=== PATIENT | female | born 1980 | race African-American/Black ===

== ENCOUNTER 2024-02-05 13:34 | Emergency (ER) | payer BC ==
[~2024-02-05] VITALS: Ht 177.8 cm; Wt 91.0 kg
[2024-02-05 13:40] VITALS: O2SAT 100
[2024-02-05] MEDS ORDERED: DICYCLOMINE 10 MG/5 ML ORAL SYR PO STA (14:32)
[2024-02-05] MEDS: ONDANSETRON HCL 4MG/2ML INJ IV STA (14:45)
[2024-02-05] MEDS: MAGNESIUM/ALUMINUM HYDROXIDE/SIMETHICONE 30ML UDC PO STA (14:46)
[2024-02-05] MEDS: KETOROLAC 30MG/ML VIAL IV STA (14:46)
[2024-02-05 14:54] LABS: BASOPHILS % 0.4 % (0.0-2.0); EOSINOPHILS % 0.3 % (0.0-5.0); HEMATOCRIT. 35.8 % (36.0-48.0); LYMPHOCYTES % 8.9 % (20.0-50.0); MEAN CORPUSCULAR HEMOGLOBIN 28.6 pg (28.0-32.0); MEAN CORPUSCULAR HGB CONC 33.5 g/dL (31.0-37.0); MEAN CORPUSCULAR VOLUME 85.3 fL (81.0-99.0); MEAN PLATELET VOLUME 6.9 fl (7.4-10.4); MONOCYTES % 3.6 % (2.0-8.0); NEUTROPHILS % 86.8 % (40.0-76.0); PLATELET 325 x1000/uL (130-400); RED CELL DISTRIBUTION WIDTH 14.6 % (11.6-14.6); WHITE BLOOD COUNT 8.7 x1000/uL (4.5-11.0)
[2024-02-05 14:59] LABS: CHLORIDE 106 mEq/L (98-107); POTASSIUM 3.9 mEq/L (3.5-5.1); SODIUM 138 mEq/L (136-145)
[2024-02-05 15:00] LABS: CALCIUM 9.3 mg/dL (8.7-10.4); CARBON DIOXIDE 25 mEq/L (21-32)
[2024-02-05 15:05] LABS: GLUCOSE 96 mg/dL (70-105); UREA NITROGEN BLOOD 11 mg/dL (9-23)
[2024-02-05 15:05] LABS: CLARITY URINE CLOUDY (CLEAR); COLOR URINE DARK YELLOW (YELLOW); GLUCOSE URINE NEGATIVE (NEGATIVE); KETONES URINE 1+ (NEGATIVE); LEUKOCYTE ESTERASE URINE NEGATIVE (NEGATIVE); NITRITE URINE NEGATIVE (NEGATIVE); OCCULT BLOOD URINE 1+ (NEGATIVE); PROTEIN URINE TRACE (NEGATIVE); SPECIFIC GRAVITY URINE 1.022 (1.005-1.030); UROBILINOGEN URINE 0.2 E.U./dL (0.2-1.0)
[2024-02-05 15:07] LABS: ALANINE AMINOTRANSFERASE 21 IU/L (10-49); ALBUMIN 4.9 g/dL (3.2-4.8); ASPARTATE AMINOTRANSFERASE 28 IU/L (<34); BILIRUBIN DIRECT < 0.1 mg/dL (<=3.0); BILIRUBIN TOTAL 0.4 mg/dL (0.1-1.0); HCG SCREEN NEGATIVE; PROTEIN TOTAL 7.7 g/dL (6.0-8.3)
[2024-02-05] MEDS: DICYCLOMINE HCL 10MG CAPSULE PO NR (15:15)
[2024-02-05 15:17] LABS: MUCUS URINE TRACE /lpf (< = 2+); SQUAMOUS EPITHELIAL CELL URINE 3+ /lpf (RARE/1+)
[2024-02-05 15:18] LABS: WBC URINE 0-2 /hpf (0-2)
[2024-02-05 15:25] LABS: BACTERIA URINE 2+
[2024-02-05] MEDS ORDERED: MAG-55 MT (15:44)
[2024-02-05] MEDS ORDERED: TOPUD PO (15:44)
[2024-02-05 15:55] VITALS: BP 130/80; PULSE 81; RESP 16; TEMP 98.2
== END 2024-02-05 15:56 | disposition home or self-care (01) ==
LOC: ER 13:34
DX: R10.13 Epigastric pain (principal)
CPT/HCPCS: 99285; 96374; 76705; 96375; 80076; 80048; 81003; 81025; 84703; 83690; 85025; 36415; 93005; J1885; J2405